=== PATIENT | male | born 1990 | race Caucasian/White ===

== ENCOUNTER 2020-10-07 08:44 | Emergency (ER) | payer BC, SELFPAY ==
[~2020-10-07] VITALS: Ht 177.8 cm; Wt 106.6 kg
[2020-10-07 08:59] VITALS: BP_SYST 110
--- NOTE | 2020-10-07 09:12 | NUR ---
Patient to ER bed to gown for evaluation. Side rails up. Report to Marcin DURAND
--- NOTE | 2020-10-07 09:14 | NUR ---
ER Dr. KHAN at bedside examining patient.
[2020-10-07] MEDS ORDERED: ONDANSETRON HCL 4 MG/2 ML VIAL IVP ONE (09:30)
[2020-10-07] MEDS ORDERED: NACL 0.9% 1,000 ML IV ONE (09:30)
[2020-10-07] MEDS ORDERED: KETOROLAC TROMETHAMINE 30 MG VIAL IVP ONE (09:30)
--- NOTE | 2020-10-07 09:35 | NUR ---
Pt stated R side abdominal pain, currently states the pain is tolerable
--- NOTE | 2020-10-07 09:40 | NUR ---
Pt refusing medication at this time as well as IV access, made aware.
[2020-10-07 09:45] LABS: BASOPHILS # (AUTO) 0.1 K/uL (0.0-0.2); BASOPHILS % (AUTO) 0.5 % (0.0-2.0); HEMATOCRIT 47.5 % (36-54); HEMOGLOBIN 16.4 g/dL (14.0-18.0); LYMPHOCYTES # (AUTO) 1.1 K/uL (1.0-5.5); LYMPHOCYTES % (AUTO) 10.3 % (20.5-51.5); MEAN CORPUSCULAR HEMOGLOBIN 31 pg (27-31); MEAN CORPUSCULAR HGB CONC 35 % (32-36); MEAN CORPUSCULAR VOLUME 90 fL (79.0-98.0); MONOCYTES # (AUTO) 0.9 K/uL (0.0-1.0); NEUTROPHILS # (AUTO) 8.8 K/uL (1.8-7.7); NEUTROPHILS % (AUTO) 81.2 % (40.0-70.0); PLATELET COUNT (AUTO) 227 K/uL (130-430); RED BLOOD CELL COUNT(AUTO) 5.27 MIL/uL (4.2-6.2); RED CELL DISTRIBUTION WIDTH 12.7 % (9.0-15.0); WHITE BLOOD COUNT (AUTO) 10.8 K/uL (4.8-10.8)
[2020-10-07 10:02] LABS: CALCIUM 9.1 mg/dL (8.4-11.0); CREATININE 1.01 mg/dL (0.55-1.30); POTASSIUM 3.5 mmol/L (3.5-5.1)
[2020-10-07 10:07] LABS: ALBUMIN 3.9 g/dL (3.4-4.8); TOTAL BILIRUBIN 1.3 mg/dL (0.0-1.0)
--- NOTE | 2020-10-07 11:06 | NUR ---
Pt sitting upright in gurney at this time, appears comfortable, does not verbalize any pain or discomfort at this time.
--- NOTE | 2020-10-07 11:24 | NUR ---
Patient given written and verbal discharge instructions and verbalizes understanding. ER MD discussed with patient the results and treatment provided. Patient in stable condition. ID arm band removed. Rx of NONE given. Patient educated on pain management and to follow up with PMD. Pain Scale 0/10. Opportunity for questions provided and answered. Medication side effect fact sheet provided.
== END 2020-10-07 11:24 | disposition home or self-care (01) ==
LOC: SED 08:44
DX: R10.31 Right lower quadrant pain (principal); Z88.0 Allergy status to penicillin
CPT/HCPCS: 36415; 76700; 80053; 83690; 85025; 99284; J1885; J2405